=== PATIENT | male | born 1990 | race Caucasian/White ===

== ENCOUNTER 2020-11-13 10:00 | Outpatient (REF) | payer MEDICAID, SELFPAY ==
--- NOTE | 2020-11-13 10:13 | XR_ITS ---
EXAMINATION: XR ANKLE, RIGHT CLINICAL INFORMATION: Pain COMPARISON: None TECHNIQUE: AP, lateral, and mortise views of the right ankle. FINDINGS: Bone alignment is normal. No fracture or dislocation is seen. The ankle mortise is normal. There is question of a small osteophyte of the navicular bone at the talonavicular joint. Soft tissues are unremarkable. XR/XR ankle RT min 3V IMPRESSION: Normal right ankle. Question small navicular bone osteophyte.
== END 2020-11-13 10:01 | disposition home or self-care (01) ==
LOC: HO.XRAY 10:00
PROVIDERS: PCP Internal Medicine; Visit Provider Internal Medicine
DX: M25.571 Pain in right ankle and joints of right foot (principal)
CPT/HCPCS: 73610

== ENCOUNTER 2020-12-02 11:09 | Outpatient (REF) | payer MEDICAID, SELFPAY ==
--- NOTE | 2020-12-02 15:59 | MHC.AU.P13 ---
Adult Audiological Evaluation Date of Visit: 12/02/20 Reason for Appointment: Patient reports long-standing hearing difficulty. 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 He finds himself asking for repetition frequently. His family has noticed hearing difficulty at home and on the phone as well. Patient reports that his ears often feel blocked. 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 Right Ear: Normal Middle Ear System (Type A) Left Ear: Normal Middle Ear System (Type A) Otoacoustic Emissions Frequency Range Used: 1.6-8 kHz Right Ear Results: Present Emissions Analysis: Present emissions suggest normal cochlear function Rules out peripheral hearing loss greater than a mild degree Left Ear Results: Present Emissions Analysis: Present emissions suggest normal cochlear function Rules out peripheral hearing loss greater than a mild degree Hearing Evaluation: Transducer(s) Used: Insert Earphones Method: Conventional Audiometry Stimuli Used: Pure Tones Right Ear: Description of Hearing: Normal peripheral hearing sensitivity Left Ear: Description of Hearing: Normal peripheral hearing sensitivity Speech Recognition Threshold (SRT): Method Used: Recorded Lists Right Ear: 25 dBHL Left Ear: 25 dBHL Word Discrimination: Method: Recorded Lists Word Lists Used: Lista Bisil?bica (Gabonese) Right Ear: In Quiet: 100% at 65 dBHL In Noise (+10 SNR): 68% at 65 dBHL Left Ear: In Quiet: 100% at 65 dBHL In Noise (+10 SNR): 64% at 65 dBHL Interpretation of Results: When in quiet, the patient's tonal hearing is normal and his word discrimination scores are excellent; however, when background noise is added, his word discrimination scores drop significantly. This suggests the patient has great difficulty understanding speech when other noise is present. This finding helps explain why the patient is reporting such difficulty hearing in his daily life. Recommendations: Audiological re-evaluation in one year. Before talking to the patient, gain his full attention. In an ideal listening environment, conversations would be [id number] and from a close distance (however, given the current COVID-19 pandemic, it is important to continue following guidelines such as wearing masks and maintaining 6 foot distances during conversations, until it is safe to do otherwise). Reduce background noise whenever possible. Use written materials as needed, such as sending important information or directions by e-mail or text. Products called hearables may be beneficial, as they can offer a small amount of amplifcation, while reducing background noise. An example is the Jac[employer]eline Hearphones. Diagnosis: Primary Diagnosis: H93.293 Abnormal Auditory Perception Services Performed:Comprehensive Audiological Evaluation (CPT 69224), Limited Otoacoustic Emissions (CPT 65448), Tympanometry (CPT 66611) Signature: Provider: Cassie Wilkes, CCC-A
== END 2020-12-02 11:10 | disposition home or self-care (01) ==
LOC: HO.SH 11:09
PROVIDERS: Visit Provider Internal Medicine
DX: H93.293 Other abnormal auditory perceptions, bilateral (principal)
CPT/HCPCS: 92557; 92567; 92587

== ENCOUNTER 2020-12-05 09:45 | Inpatient (IN) | payer MEDICAID, SELFPAY ==
[2020-12-05] VITALS (9 sets, daily range): BP systolic 100–143; BP diastolic 53–78; PULSE 66–100; RESP 11–18; TEMP 36–36.8; O2SAT 93–100; BMI 33.6
--- NOTE | 2020-12-05 11:14 | ED_ITS ---
HPI - Abdominal Pain General Chief Complaint: Abdominal Pain Stated Complaint: abd pain Time Seen by Provider: 12/05/20 11:14 Source: patient Mode of arrival: ambulatory Limitations: no limitations History of Present Illness HPI narrative: This is a otherwise healthy 30-year-old male who denies any significant past medical history or surgical history he presents with complaint of 6 days of ongoing right lower quadrant abdominal pain described as sharp pains to shooting that is somewhat persistent no aggravating or alleviating factors there is associated nausea and today has had 2 episodes of diarrhea. He otherwise denies any recent travel or sick contacts. No fever. No prior history of similar pain. No symptoms. No back pain. MD elicited complaint: abdominal pain Onset (ago): day(s) Pain Consistency: constant Location: RLQ Severity: moderate Quality: stabbing and aching Migration to: periumbilical Exacerbating factors: nothing Relieving factors: nothing Associated symptoms: denies other symptoms Related Data Allergies Allergy/AdvReac Type Severity Reaction Status Date / Time seafood Allergy Anaphylaxis Verified 12/05/20 11:03 Review of Systems Review of Systems Constitutional: No Weight loss, No Fever, No Chills, No Night Sweats, No Fatigue, No Malaise ENT/Mouth: No Hearing loss, No Ear Pain, No Nasal Congestion, No Sinus Pain, No Hoarseness, No sore throat, No Rhinorrhea, No Swallowing Difficulty Eyes: No Eye Pain, No Swelling, No Redness, No Foreign Body, No Discharge, No Vision Changes Cardiovascular: No Chest Pain, No SOB, No Dyspnea on Exertion, No Orthopnea, No Edema, No Palpitations Respiratory: No Cough, No Sputum, No Wheezing, No Smoke Exposure, No Dyspnea Gastrointestinal: As noted in HPI, No Hematochezia, No Melena Genitourinary: No Dysuria, No Urinary Frequency, No Hematuria, No Urinary Incontinence, No Urgency, No Flank Pain Musculoskeletal: No joint pain, No Myalgias, No Joint Swelling Skin: No Skin Lesions, No rash Neuro: No Weakness, No Numbness, No Paresthesias, No Loss of Consciousness, No Dizziness, No Headache Psych: Negative Heme/Lymph: No Bruising, No Bleeding,No Lymphadenopathy Endocrine: No Polyuria, No Polydipsia, No Temperature Intolerance Yes all other systems are reviewed and are negative Physical Exam Vital Signs: Vital Signs: Last Vital Signs Temp 98.0 F 12/05/20 13:31 Pulse 100 12/05/20 13:31 Resp 18 12/05/20 13:31 BP 139/64 12/05/20 13:31 Pulse Ox 99 12/05/20 13:31 Body Mass Index 33.6 Reviewed Const: General: cooperative and healthy appearing; No acute distress or into xicated appearing Nutritional Appearance: average body habitus Orientation/consciousness: patient oriented x3 HENMT: Head: Yes normal to inspection Ears: hearing grossly normal bilaterally Eyes: General: appearance normal, both eyes and all related structures Visual Boyd: normal visual boyd by confrontation Neck: Neck: Yes normal visual inspection, No positive Brudzinski's sign, No positive Kernig's sign and No tender Thyroid: Thyroid normal Chest: Chest palpation & inspection: normal inspection of the chest Resp: Effort & Inspection: normal respiratory effort Cardio: Jugular venous distension: no JVD Rhythm: regular rhythm Heart sounds: S1 normal heart sound present and S2 normal heart sound present GI: Inspection: Yes normal to inspection Palpation (GI): Tenderness to palpation present (GI) in the RLQ, no guarding and not rigid Percussion: Yes normal to percussion Auscultation: normal bowel sounds : General: Yes no CVA tenderness Back/Spine/Pelvis: Back: no CVA tenderness Skin: General skin exam: no rashes or lesions noted Neuro: General: patient oriented x3 Extrem: General: Yes normal to inspection Course Course Course Narrative: AP exam concerning for acute appendicitis accordingly labs and abdominal CT with IV contrast ordered. States he would like to hold off on any pain medicine at this time but would like something for nausea. Nontoxic a ppearing. He medically stable at this time. Reevaluation(s) Reevaluation #1: Labs showed leukocytosis 1344 did request dose of pain medicine right now which was given. Otherwise slight hyperkalemia at 5.2. CT of the abdomen pelvis is pending. Reevaluation #2: CT of the abdomen and pelvis show: Distended inflamed appendix with a small phlebolith at the base and radiopaque metallic foreign body with artifact at the tip. The foreign body could be from oral ingestion or metallic maranda from partial appendectomy. There is periappendix fat stranding consistent with acute appendicitis. Correlate with clinical history Consultations Consultation #1: Case discussed with general surgery Dr. Ervin who came and evaluated patient at bedside will take to the OR. MDM - Abdominal Pain Differential Diagnosis Differential diagnosis: Likely abdominal pain, acute appendicitis, calculus of kidney and renal colic; Unlikely aortic dissection, bowel perforation, constipat ion, diverticulitis, gastroenteritis, pancreatitis, peptic ulcer disease and small bowel obstruction Medical Records Attestation: I reviewed the patient's medical records. Lab Data Attestation: I reviewed the patient's lab results. Result diagrams: 12/05/20 11:21 12/05/20 11:21 Labs: Lab Results 12/05/20 12/05/20 12/05/20 Range/Units 11:21 11:21 11:21 WBC 13.4 H (4.8-10.8) X10*3/uL RBC 5.27 (4.60-5.80) X10*6/uL Hgb 15.6 (14.0-18.0) g/dl Hct 47.2 (42-52) % MCV 89.6 (80-98) fL MCH 29.6 (27.0-33.0) pg MCHC 33.1 (31.0-36.0) g/dl RDW 11.8 (11.0-16.0) % Plt Count 245 (160-400) X10*3/uL MPV 10.7 (9.4-12.4) fL Immature Gran % (Auto) 0.3 (0.0-0.4) % Neut % (Auto) 83.9 H (45-73) % Lymph % (Auto) 9.3 L (20-40) % [place] % (Auto) 5.9 (2-11) % Eos % (Auto) 0.4 (0-4) % Baso % (Auto) 0.2 (0-2) % Lymph # (Auto) 1.2 (1.2-4.9) X10*3/uL [place] # (Auto) 0.8 (0.1-1.2) X10*3/uL Eos # (Auto) 0.1 (0.0-0.4) X10*3/uL Baso # (Auto) 0.0 (0.0-0.2) X10*3/uL Abs Immat Gran (auto) 0.04 H (0.00-0.03) X10*3/uL Absolute Neuts (auto) 11.3 H (2.0-8.3) X10*3/uL Absolute Nucleated RBC 0.000 (0.0-0.012) X10*3/uL Nucleated RBC % (auto) 0.0 (0.0-0.2) /100WBC Sodium 138 (135-145) mmol/L Potassium 5.2 H (3.3-5.1) mmol/L Chloride 103 (96-108) mmol/L Carbon Dioxide 24 (22-29) mmol/L Anion Gap 16 (12-20) BUN 16 (9-16) mg/dL Creatinine 0.91 (0.5-1.4) mg/dL Estim Creat Clear Calc 117.2 Estimated GFR > 60 Random Glucose 105 (60-115) mg/dL Calcium 8.7 (8.4-10.2) mg/dL Total Bilirubin 0.5 (0.0-1.0) mg/dL AST 27 (5-37) U/L ALT 24 (0-40) U/L Alkaline Phosphatase 78 (39-117) U/L Total Protein 7.8 (6.5-8.0) g/dL Albumin 4.4 (3.5-5.0) g/dL Urine Color Urine Appearance Urine pH (5.0-8.0) Ur Specific [place] (1.005-1.025) Urine Protein (NEG-TRACE) MG/DL Urine Glucose (UA) (NEG) MG/DL Urine Ketones (NEG) MG/DL Urine Blood (NEG) Urine Nitrite (NEG) Ur Leukocyte Esterase (NEG) Urine RBC (0) /HPF Urine WBC (0-4) /HPF Ur Squamous Epith Cells /LPF Urine Bacteria /LPF COVID-19 ([facility]) Negative (Negative) COVID-19 Clin Com See Note 12/05/20 Range/Units 11:35 WBC (4.8-10.8) X10*3/uL RBC (4.60-5.80) X10*6/uL Hgb (14.0-18.0) g/dl Hct (42-52) % MCV (80-98) fL MCH (27.0-33.0) pg MCHC (31.0-36.0) g/dl RDW (11.0-16.0) % Plt Count (160-400) X10*3/uL MPV (9.4-12.4) fL Immature Gran % (Auto) (0.0-0.4) % Neut % (Auto) (45-73) % Lymph % (Auto) (20-40) % [place] % (Auto) (2-11) % Eos % (Auto) (0-4) % Baso % (Auto) (0-2) % Lymph # (Auto) (1.2-4.9) X10*3/uL [place] # (Auto) (0.1-1.2) X10*3/uL Eos # (Auto) (0.0-0.4) X10*3/uL Baso # (Auto) (0.0-0.2) X10*3/uL Abs Immat Gran (auto) (0.00-0.03) X10*3/uL Absolute Neuts (auto) (2.0-8.3) X10*3/uL Absolute Nucleated RBC (0.0-0.012) X10*3/uL Nucleated RBC % (auto) (0.0-0.2) /100WBC Sodium (135-145) mmol/L Potassium (3.3-5.1) mmol/L Chloride (96-108) mmol/L Carbon Dioxide (22-29) mmol/L Anion Gap (12-20) BUN (9-16) mg/dL Creatinine (0.5-1.4) mg/dL Estim Creat Clear Calc Estimated GFR Random Glucose (60-115) mg/dL Calcium (8.4-10.2) mg/dL Total Bilirubin (0.0-1.0) mg/dL AST (5-37) U/L ALT (0-40) U/L Alkaline Phosphatase (39-117) U/L Total Protein (6.5-8.0) g/dL Albumin (3.5-5.0) g/dL Urine Color YELLOW Urine Appearance CLEAR Urine pH 6.0 (5.0-8.0) Ur Specific [place] >= 1.030 H (1.005-1.025) Urine Protein NEG (NEG-TRACE) MG/DL Urine Glucose (UA) NEG (NEG) MG/DL Urine Ketones NEG (NEG) MG/DL Urine Blood NEG (NEG) Urine Nitrite NEG (NEG) Ur Leukocyte Esterase NEG (NEG) Urine RBC 0 (0) /HPF Urine WBC 0-2 (0-4) /HPF Ur Squamous Epith Cells NONE /LPF Urine Bacteria NONE /LPF COVID-19 ([facility]) (Negative) COVID-19 Clin Com Discharge Plan Discharge Clinical Impression: Acute appendicitis Patient Disposition: Admitted As Inpatient [facility] Past Medical History Medical History (Updated 12/05/20 @ 16:21 by Ramin Ramsay NP) Acute appendicitis Asthma Foreign body in intestine and colon Social History Social History Alcohol intake: current Alcohol intake frequency: a few times a month Smoking Status: Never smoker Use of substances other than those prescribed or required for medical reasons: No Advance Directives: No Advance Directives Information Provided: Yes
--- NOTE | 2020-12-05 11:14 | CT_ITS ---
EXAMINATION: CT ABDOMEN AND PELVIS WITH CONTRAST CLINICAL INFORMATION: Right lower quadrant abdominal pain. COMPARISON: None TECHNIQUE: Multidetector volumetric images were obtained from the superior aspect of the liver through the pubic symphysis following administration 85 mL of Omnipaque 350 intravenous contrast. Sagittal and coronal reformatted images were obtained on the technologist's workstation. Oral contrast: No This CT examination was performed using dose optimization techniques as appropriate, variously including the following: *Automated exposure control *Adjustment of mA and/or kV according to patient size (this includes techniques or standardized protocols for targeted exams where dose is matched to indication/reason for exam; i.e. extremities or head) *Use of iterative reconstruction technique DLP: 650 mGy-cm FINDINGS: LUNG BASES: No acute process seen in the lung bases. There is a 2 mm nodule left lower lobe, axial image 9/3. The heart size is normal. Mild mural thickening of GE junction likely from reflux esophagitis or small hiatal hernia. LIVER, GALLBLADDER, AND BILIARY TREE: The liver is normal in size, shape, and attenuation. No focal hepatic lesion or biliary ductal dilatation is present. The gallbladder is unremarkable with no evidence of radiopaque gallstones, gallbladder wall thickening, or obvious pericholecystic inflammatory changes. PANCREAS: Unremarkable. SPLEEN: Unremarkable. ADRENAL GLANDS: Unremarkable. KIDNEYS AND URETERS: The kidneys are normal in size, shape, and attenuation. No hydronephrosis, hydroureter, or calculi seen. No perinephric stranding. BLADDER: Unremarkable. GASTROINTESTINAL TRACT: There is scattered stool, gas throughout the colon without any distention. There is a small appendicolith in what appears to the base of appendix with mild distention of appendix measuring 1.1 cm. There are surgical maranda and artifact at the tip of the appendix. Question previous appendectomy maranda or radiopaque foreign body from ingestion. There is mild periappendix fat stranding. The IC junction is normal. No free air seen. ABDOMINAL WALL: No significant hernia is appreciated. LYMPH NODES: Normal. VASCULAR: Unremarkable. PELVIC VISCERA: Unremarkable. OSSEOUS STRUCTURES: A few endplate Schmorl's nodes upper lumbar, lower dorsal spine. No compression fracture seen. Limbus L5 vertebra. CT/CT abdomen pelvis w con IMPRESSION: Distended inflamed appendix with a small phlebolith at the base and radiopaque metallic foreign body with artifact at the tip. The foreign body could be from oral ingestion or metallic maranda from partial appendectomy. There is periappendix fat stranding consistent with acute appendicitis. Correlate with clinical history Results were discussed with Ramin Ramsay in ED at 2:50 PM. Initial call to ED was done around 11:15 AM but refer was not available on the phone.
[2020-12-05 11:27] LABS: MANUAL DIFF FLAG NO
[2020-12-05 11:29] LABS: Basophils Percent Auto 0.2 % (0-2); Eosinophils Absolute Auto 0.1 X10*3/uL (0.0-0.4); Eosinophils Percent Auto 0.4 % (0-4); Hematocrit 47.2 % (42-52); Hemoglobin 15.6 g/dl (14.0-18.0); Imm Gran Abs Auto 0.04 X10*3/uL (0.00-0.03); Imm Gran Pct Auto 0.3 % (0.0-0.4); Lymphocytes Absolute Auto 1.2 X10*3/uL (1.2-4.9); Lymphocytes Percent Auto 9.3 % (20-40); Mean Corpuscular HGB Conc 33.1 g/dl (31.0-36.0); Mean Corpuscular Hemoglobin 29.6 pg (27.0-33.0); Mean Corpuscular Volume 89.6 fL (80-98); Mean Platelet Volume 10.7 fL (9.4-12.4); Monocytes Absolute Auto 0.8 X10*3/uL (0.1-1.2); Monocytes Percent Auto 5.9 % (2-11); Neutrophils Absolute Auto 11.3 X10*3/uL (2.0-8.3); Neutrophils Percent Auto 83.9 % (45-73); Platelet Count 245 X10*3/uL (160-400); Red Blood Count 5.27 X10*6/uL (4.60-5.80); Red Cell Distribution Width 11.8 % (11.0-16.0); White Blood Count 13.4 X10*3/uL (4.8-10.8)
[2020-12-05] MEDS: 0.9 % Sodium Chloride 1,000 ML 999 ML IV (11:33)
[2020-12-05 11:48] LABS: IDNOW Serial# 9DD0AD1C
[2020-12-05 11:49] LABS: COVID-19 Test Negative (Negative)
[2020-12-05 11:50] LABS: Glucose Urine UA NEG (NEG); Leukocyte Esterase Urine NEG (NEG); Nitrite Urine NEG (NEG); Specific Gravity - Urine >= 1.030 (1.005-1.025); Urine Blood NEG (NEG); Urine Ketones NEG (NEG); Urine Protein NEG (NEG-TRACE)
[2020-12-05 11:52] LABS: Alanine Aminotransferase 24 U/L (0-40); Albumin Level 4.4 g/dL (3.5-5.0); Alkaline Phosphatase 78 U/L (39-117); Anion Gap 16 (12-20); Aspartate Amino Transferase 27 U/L (5-37); Bilirubin Total 0.5 mg/dL (0.0-1.0); Blood Urea Nitrogen 16 mg/dL (9-16); Calcium 8.7 mg/dL (8.4-10.2); Carbon Dioxide 24 mmol/L (22-29); Chloride 103 mmol/L (96-108); Creatinine Clr Calc Pharmacy 117.2; Estimated Glomerular Filt Rate > 60; Glucose Random 105 mg/dL (60-115); Potassium 5.2 mmol/L (3.3-5.1); Sodium 138 mmol/L (135-145); Total Protein 7.8 g/dL (6.5-8.0)
--- NOTE | 2020-12-05 11:55 | PC.NURSE ---
blood and urine obtained and sent to lab. Pt awaiting CT at this time.
[2020-12-05 12:09] LABS: Appearance Urine CLEAR; Color Urine YELLOW
[2020-12-05 12:19] LABS: RBC Urine 0 /HPF (0); WBC Urine 0-2 /HPF (0-4)
[2020-12-05] MEDS: Morphine Sulfate 4 MG/ML CARTRIDGE IVPUSH (13:28)
--- NOTE | 2020-12-05 13:31 | PC.NURSE ---
Awaiting results of imaging.PT medicated for pain.
[2020-12-05] MEDS: cefTRIAXone sodium 1 GM in 0.9 % Sodium Chloride 50 ML IV (15:12)
[2020-12-05] MEDS: metroNIDAZOLE/NS 500 MG/100 ML PIGGYBACK 100 MG IV (15:42)
--- NOTE | 2020-12-05 16:01 | P.HPGS_ITS ---
History of Present Illness History of Present Illness Date of Service: 12/05/20 Chief complaint: abd pain Narrative: Gregory Mccloud is a 30 year old male presenting with complaints of abdominal pain in the right lower quadrant. The pain began approximately 2 weeks ago and was described as a mild intermittent pinching in the right lower quadrant. On Monday12/04/2020 the pain became more intense in the right lower quadrant and increased in severity throughout the night. He subsequently presented to the emergency department this morning and was noted to be tender in the right lower quadrant. WBC was also elevated. CT of the abdomen and pelvis revealed metal fragment associated with the appendix with surrounding appendicitis. The patient denies a previous history of abdominal injury or abdominal surgery. He is unaware of any metallic ingestion. Patient is admitted for treatment of acute appendicitis and removal of the foreign body. Review of Systems Constitutional: Constitutional: Denies chills, Denies fever(s), Denies headache(s) and Denies poor appetite ENT: Denies dizziness and Denies headache(s) Cardiovascular: Cardiovascular: Denies chest pain, Denies rapid heart rate, Denies palpitations and Denies slow heart rate Respiratory: Respiratory: Denies chest congestion, Denies cough, Denies pain on inspiration and Denies wheezing Gastrointestinal: Gastrointestinal: Reports abdominal pain, Denies bloating, Denies change in stool character, Denies constipation, Denies diarrhea, Reports nausea, Denies vomiting and Denies hematemesis Musculoskeletal: Musculoskeletal: Denies back pain, Denies arthralgias, Denies joint swelling and Denies numbness Integumentary/Breasts: Skin/Breast: Denies change in pigmentation, Denies erythema and Denies rash Neurologic: Denies confusion, Denies dizziness, Denies headache(s) and Denies numbness Psychiatric: Psychiatric: Denies anxiety, Denies confusion and Denies depression Endocrine: Endocrine: Denies palpitations Hematologic/Lymphatic: Hematologic/Lymphatic: Denies easy bleeding, Denies easy bruising and Denies lymphadenopathy Allergic/Immunologic: Allergic/Immunologic: Denies wheezing PMFSH Past Medical History Medical History (Updated 12/05/20 @ 16:07 by Eddy Ervin MD) Acute appendicitis Asthma Foreign body in intestine and colon Social History Social History Alcohol intake: current Alcohol intake frequency: a few times a month Smoking Status: Never smoker Use of substances other than those prescribed or required for medical reasons: No Advance Directives: No Advance Directives Information Provided: Yes Meds Allergies Allergy/AdvReac Type Severity Reaction Status Date / Time seafood Allergy Anaphylaxis Verified 12/05/20 11:03 Physical Exam Vital Signs: Vital Signs: Last Vital Signs Temp 98.0 F 12/05/20 13:31 Pulse 100 12/05/20 13:31 Resp 18 12/05/20 13:31 BP 139/64 12/05/20 13:31 Pulse Ox 99 12/05/20 13:31 Body Mass Index 33.6 Const: General: cooperative, comfortable and well developed; No confusion Nutritional Appearance: well nourished Orientation/consciousness: patient oriented x3 and No confusion Eyes: Sclerae: sclerae normal EOM: EOMs intact bilaterally Neck: Neck: Yes normal visual inspection Resp: Effort & Inspection: normal respiratory effort, no cough and no respiratory distress Cardio: Jugular venous distension: no JVD Rate: regular rate Rhythm: regular rhythm GI: Inspection: Yes normal to inspection Palpation (GI): Soft to palpation, Tenderness to palpation present (GI) in the RLQ, at McBurney's point and Rovsin g's sign positive, no guarding and not rigid Percussion: Yes normal to percussion Auscultation: normal bowel sounds Abdomen image: 1. Site of tenderness Skin: General skin exam: dry skin Rashes: no rashes Neuro: General: patient oriented x3, no focal motor deficits and No confusion Extrem: General: Yes full ROM and Yes no clubbing, cyanosis or edema Results Results Labs: Short CBC 12/05/20 Range/Units 11:21 WBC 13.4 H (4.8-10.8) X10*3/uL Hgb 15.6 (14.0-18.0) g/dl Hct 47.2 (42-52) % Plt Count 245 (160-400) X10*3/uL BMP 12/05/20 11:21 Sodium 138 Potassium 5.2 H Chloride 103 Carbon Dioxide 24 BUN 16 Creatinine 0.91 Calcium 8.7 Liver Function 12/05/20 Range/Units 11:21 Total Bilirubin 0.5 (0.0-1.0) mg/dL AST 27 (5-37) U/L ALT 24 (0-40) U/L Alkaline Phosphatase 78 (39-117) U/L Albumin 4.4 (3.5-5.0) g/dL Urine 12/05/20 Range/Units 11:35 Urine Color YELLOW Urine Appearance CLEAR Urine pH 6.0 (5.0-8.0) Ur Specific [place] >= 1.030 H (1.005-1.025) Urine Protein NEG (NEG-TRACE) MG/DL Urine Glucose (UA) NEG (NEG) MG/DL Assessment and Plan (1) Acute appendicitis: Status: Acute Patient presents with complaints of abdominal pain in the right lower quadrant which began approximately 2 weeks ago but became more severe over the past 24 hours. [place] [address] and is tender in the right lower quadrant over McBurney's point suggestive of acute appendicitis. CT of the abdomen and pelvis confirms appendicitis as well as metallic fragment possibly within the appendix. This fragment is of unknown source. We discussed the possibility of non operative management with IV antibiotics although this is unlikely to be successful with the foreign body being present. I therefore recommended a laparoscopic or possible open appendectomy and after discussion of the procedure, risks, and alternatives, he gives his consent for the laparoscopic or possible open appendectomy. He will be added onto the operative schedule for today.
--- NOTE | 2020-12-05 16:09 | MHC.SHP ---
Pre-Procedural Eval Section A The patient is an INPATIENT: Yes Changes since office visit: Yes Patient answered all questions; No Cold of Flu in the past 2 weeks, No New Medical Problems and No Changes in Medication The History & Physical has been completed within 30 days and I have reviewed it.: Yes Section B Chief Complaint: abd pain Allergies: Allergies Allergy/AdvReac Type Severity Reaction Status Date / Time seafood Allergy Anaphylaxis Verified 12/05/20 11:03 Plan Diagnosis/Plan: Unchanged I have reviewed the history and physical and performed a pertinent physical examination on my patient. No changes have occurred unless specified.
--- NOTE | 2020-12-05 16:47 | P.CONAN_ITS ---
[facility] Past Medical History Medical History (Updated 12/05/20 @ 16:21 by Ramin Ramsay NP) Acute appendicitis Asthma Foreign body in intestine and colon Social History Social History Alcohol intake: current Alcohol intake frequency: a few times a month Smoking Status: Never smoker Use of substances other than those prescribed or required for medical reasons: No Advance Directives: No Advance Directives Information Provided: Yes Meds Allergies Allergy/AdvReac Type Severity Reaction Status Date / Time seafood Allergy Anaphylaxis Verified 12/05/20 11:03 Exam Exam Date and Time: December 05, 2020 1647 Height,Weight and Vital Signs: Height 5 ft 3 in Weight 86.183 kg Last Vital Signs Temp 98.0 F 12/05/20 13:31 Pulse 100 12/05/20 13:31 Resp 18 12/05/20 13:31 BP 139/64 12/05/20 13:31 Pulse Ox 99 12/05/20 13:31 Pertinent Lab Results Pertinent Lab Results: Laboratory Tests 12/05/20 12/05/20 12/05/20 11:21 11:21 11:21 WBC 13.4 H RBC 5.27 Hgb 15.6 Hct 47.2 MCV 89.6 MCH 29.6 MCHC 33.1 RDW 11.8 Plt Count 245 MPV 10.7 Immature Gran % (Auto) 0.3 Neut % (Auto) 83.9 H Lymph % (Auto) 9.3 L [place] % (Auto) 5.9 Eos % (Auto) 0.4 Baso % (Auto) 0.2 Lymph # (Auto) 1.2 [place] # (Auto) 0.8 Eos # (Auto) 0.1 Baso # (Auto) 0.0 Abs Immat Gran (auto) 0.04 H Absolute Neuts (auto) 11.3 H Absolute Nucleated RBC 0.000 Nucleated RBC % (auto) 0.0 Sodium 138 Potassium 5.2 H Chloride 103 Carbon Dioxide 24 Anion Gap 16 BUN 16 Creatinine 0.91 Estim Creat Clear Calc 117.2 Estimated GFR > 60 Random Glucose 105 Calcium 8.7 Total Bilirubin 0.5 AST 27 ALT 24 Alkaline Phosphatase 78 Total Protein 7.8 Albumin 4.4 Urine Color Urine Appearance Urine pH Ur Specific [place] Urine Protein Urine Glucose (UA) Urine Ketones Urine Blood Urine Nitrite Ur Leukocyte Esterase Urine RBC Urine WBC Ur Squamous Epith Cells Urine Bacteria COVID-19 (AMADOU) Negative COVID-19 Clin Com See Note 12/05/20 11:35 WBC RBC Hgb Hct MCV MCH MCHC RDW Plt Count MPV Immature Gran % (Auto) Neut % (Auto) Lymph % (Auto) [place] % (Auto) Eos % (Auto) Baso % (Auto) Lymph # (Auto) [place] # (Auto) Eos # (Auto) Baso # (Auto) Abs Immat Gran (auto) Absolute Neuts (auto) Absolute Nucleated RBC Nucleated RBC % (auto) Sodium Potassium Chloride Carbon Dioxide Anion Gap BUN Creatinine Estim Creat Clear Calc Estimated GFR Random Glucose Calcium Total Bilirubin AST ALT Alkaline Phosphatase Total Protein Albumin Urine Color YELLOW Urine Appearance CLEAR Urine pH 6.0 Ur Specific [place] >= 1.030 H Urine Protein NEG Urine Glucose (UA) NEG Urine Ketones NEG Urine Blood NEG Urine Nitrite NEG Ur Leukocyte Esterase NEG Urine RBC 0 Urine WBC 0-2 Ur Squamous Epith Cells NONE Urine Bacteria NONE COVID-19 (AMADOU) COVID-19 Clin Com Airway Mallampati Class: I TM Dist: >3cm Neck ROM: Full Loose/Missing/Broken Teeth: No Heart: RRR Lungs: CTA Assessment and Plan Assessment Anesthesia Assessment: Anesthesia Plan Discussed and Chart Reviewed Final Anesthetic Review NPO: Yes ASA Class: II and Emergency Final Preanesthetic Review: No Changes in Pt Med Stat, Meds/Allgs Chart Reviewed, Consent Obtained/Reviewed and Anes Risks/Benef Reviewed Patient Risk: Intermediate Procedure Risk: Intermediate Anesthetic Plan Anesthetic Plan: GA Disposition: Standard PACU
--- NOTE | 2020-12-05 17:00 | PC.NURSE ---
Report given to Monik KAHN.
--- NOTE | 2020-12-05 18:29 | P.OP_ITS ---
Operative Note Operative Note Date of Service: 12/05/20 Narrative: Preoperative diagnosis: Acute appendicitis Postoperative diagnosis: Same Procedure: Laparoscopic appendectomy Surgeon: Eddy Ervin MD Anesthesia: General endotracheal Indications for procedure: 30-year-old male patient presenting with complaints of abdominal pain in the right lower quadrant which increased over the past 24 hours. Pain was located in this location for approximately 2 weeks intermittently until yesterday when the pain became suddenly worse. He presented to the emergency department was noted to have an elevated WBC. CT of the abdomen revealed appendicitis with a possible foreign body within the appendix. Operative findings: Patient was found to have acute appendicitis without perforation. There was thickening of the mesentery. Examination of the appendix after removal did not reveal immediately evident foreign body. Specimen: Appendix Complications: None Estimated blood loss: 2 mL Procedure details: Patient was brought to the OR placed in a supine position. After administering general anesthesia the patient's abdomen was prepped with ChloraPrep and draped in a sterile fashion. A surgical time-out was called and consent confirmed. The patient received preoperative antibiotics and Venodyne boots were in place. Local anesthesia consisting of 0.25% Sensorcaine with epinephrine was infiltrated in a periumbilical region. A 5 mm incision was made below the u mbilicus in a transverse fashion. Veress needle was then inserted while elevating abdominal cavity with towel clips. After positive drop test the abdomen was insufflated to a pressure of 15 mm of mercury. The Veress needle was removed and a 5 mm trocar inserted. The camera was then inserted in the abdomen explored. A 2nd 5 mm trocar was then placed in the lower midline followed by a 12 mm trocar in the left lower quadrant. The patient was then placed in Trendelenburg position rotated to the left. The abdomen was then explored and the appendix identified in the right lower quadrant. It was densely adherent to the terminal ileum and the abdominal sidewall. Gentle dissection was used to dissect the appendix free. The mesoappendix was then dissected and divided using LigaSure. Dissection was continued down to the base of the appendix and a Endo-VALENTE stapler used to divide the appendix at the base of the appendix. The appendix was then brought into the Endo-Catch bag and brought out through the left lower quadrant incision. A small amount of turbid fluid was evacuated using suction. No bleeding was identified. CO2 was then evacuated from the abdominal cavity and all trocars removed. Fascia was closed at the left lower quadrant incision using a [id number] 0 Polysorb suture. Skin was closed in all incisions using a subcuticular 4-0 Polysorb suture. Steri-Strips 2 x 2 gauze and Tegaderm were then applied. Patient tolerated the procedure well. Sponge, instrument, needle counts reported as correct. The patient was transferred to PACU in stable condition.
--- NOTE | 2020-12-05 18:36 | PM.OP ---
Brief Operative Note Date of Service: 12/05/20 Pre-op diagnosis: Acute appendicitis Post-op diagnosis: same Procedure: Laparoscopic appendectomy Implants: None Surgeon: Eddy Ervin MD Anesthesia: GETA Estimated blood loss (mL): 2 Pathology: other (Appendix) Condition: stable Disposition: PACU
[2020-12-05] MEDS: Lactated Ringers 1,000 ML 100 ML IVCONT (19:46)
[2020-12-05] MEDS: 0.9 % Sodium Chloride Flush 3 ML SYRINGE IVFLUSH (19:46)
[2020-12-05] MEDS: ondansetron HCL 4 MG/2 ML VIAL IVPUSH (20:40)
[2020-12-05] MEDS: Acetaminophen 325 MG TABLET 650 MG PO (23:25)
[2020-12-06 04:00] VITALS: BP 120/60; PULSE 80; RESP 16; TEMP 36.8; O2SAT 97
[2020-12-06] MEDS: Lactated Ringers 1,000 ML 100 ML IVCONT (05:27)
[2020-12-06 06:42] LABS: MANUAL DIFF FLAG NO
[2020-12-06 06:59] LABS: Basophils Percent Auto 0.1 % (0-2); Hematocrit 44.8 % (42-52); Hemoglobin 14.7 g/dl (14.0-18.0); Imm Gran Abs Auto 0.03 X10*3/uL (0.00-0.03); Imm Gran Pct Auto 0.3 % (0.0-0.4); Lymphocytes Absolute Auto 0.8 X10*3/uL (1.2-4.9); Lymphocytes Percent Auto 9.3 % (20-40); Mean Corpuscular HGB Conc 32.8 g/dl (31.0-36.0); Mean Corpuscular Hemoglobin 28.9 pg (27.0-33.0); Mean Corpuscular Volume 88.2 fL (80-98); Mean Platelet Volume 10.8 fL (9.4-12.4); Monocytes Absolute Auto 0.6 X10*3/uL (0.1-1.2); Monocytes Percent Auto 6.4 % (2-11); Neutrophils Absolute Auto 7.6 X10*3/uL (2.0-8.3); Neutrophils Percent Auto 83.9 % (45-73); Platelet Count 253 X10*3/uL (160-400); Red Blood Count 5.08 X10*6/uL (4.60-5.80); Red Cell Distribution Width 11.3 % (11.0-16.0)
[2020-12-06 08:00] VITALS: BP 116/52; PULSE 72; RESP 18; TEMP 36.6; O2SAT 99
--- NOTE | 2020-12-06 09:06 | P.DS_ITS ---
DS: Providers Provider Date of Service: 12/06/20 Date of admission: 12/05/20 16:10 Date of discharge: 12/06/20 Primary care physician: Nella Talavera MD Admitting clinician: Eddy Ervin DS: Diagnosis Discharge Diagnosis (1) Acute appendicitis: Status: Acute DS: Medications Discharge Medications Home Medications: Home Medications Medication Instructions Recorded Confirmed No Known Home Meds 12/06/20 12/06/20 Previous Rx's Medication Instructions Recorded oxycodone 5 mg PO Q6H PRN #10 tab 12/06/20 DS: Summary Hospital Course Hospital Course: Gregory Mccloud is a 30 year old male presenting with complaints of abdominal pain in the right lower quadrant. The pain began approximately 2 weeks ago and was described as a mild intermittent pinching in the right lower quadrant. On Monday12/04/2020 the pain became more intense in the right lower quadrant and increased in severity throughout the night. He subsequently presented to the emergency department on 12/05/2020 and was noted to be tender in the right lower quadrant. WBC was also elevated. CT of the abdomen and pelvis revealed metal fragment associated with the appendix with surrounding appendicitis. The patient denies a previous history of abdominal injury or abdominal surgery. He is unaware of any metallic ingestion. Patient is admitted for treatment of acute appendicitis and removal of the foreign body. Patient was taken to the operating room on the day of admission, 12/05/2020 for a laparoscopic appendectomy. Operative findings were consistent with acute appendicitis without perforation. No definite foreign body could be identified within the specimen or surrounding the appendix. A small amount of turbid fluid was identified but no evidence of an abscess. The patient tolerated the procedure well and was transferred to PACU in stable condition. Postoperatively the patient was started on clear liquid diet and advanced to a regular diet. He tolerated this well without nausea or vomiting. On postoperative day 1 patient reports being comfortable with no nausea, vomiting, fever, or chills. He reports only mild incisional pain in the left lower quadrant. He feels ready for discharge to home. Discharge instructions were to avoid lifting greater than 10 lb for the next 2 weeks and avoid driving for the next week. He may resume a regular diet. He will be given a prescription for oxycodone 5 mg q.6 hours p.r.n. for pain (10 tabs). He should follow up in my office in approximately 1 week for wound examination. He was encouraged to call the office for fever, chills, nausea, vomiting, or other concerns. Time Spent with Patient Time attestation: Total time spent providing and/or coordinating discharge services: Discharge coordination time: Less than 30 minutes Physical Exam Vital Signs: Vital Signs: Last Vital Signs Temp 97.9 F 12/06/20 08:00 Pulse 72 12/06/20 08:00 Resp 18 12/06/20 08:00 BP 116/52 L 12/06/20 08:00 Pulse Ox 99 12/06/20 08:00 Body Mass Index 33.6 Const: General: cooperative, healthy appearing, comfortable and no acute distress Resp: Effort & Inspection: normal respiratory effort Auscultation: clear to auscultation bilaterally GI: Inspection: Yes normal to inspection Palpation (GI): Soft to palpation, Tenderness to palpation present (GI) in the LLQ, no guarding, not rigid, no hernias and no masses Percussion: Yes normal to percussion Auscultation: normal bowel sounds Skin: General skin exam: dry skin and no erythema Rashes: no rashes Extrem: General: Yes no clubbing, cyanosis or edema DS: Data Data Completed and Pending Pending studies at discharge: Pending at discharge 12/05/20 18:12 Surgical [PTH] Routine Labs on day of discharge: Laboratory Tests 12/05/20 12/05/20 12/05/20 11:21 11:21 11:21 WBC 13.4 H RBC 5.27 Hgb 15.6 Hct 47.2 MCV 89.6 MCH 29.6 MCHC 33.1 RDW 11.8 Plt Count 245 MPV 10.7 Immature Gran % (Auto) 0.3 Neut % (Auto) 83.9 H Lymph % (Auto) 9.3 L [place] % (Auto) 5.9 Eos % (Auto) 0.4 Baso % (Auto) 0.2 Lymph # (Auto) 1.2 [place] # (Auto) 0.8 Eos # (Auto) 0.1 Baso # (Auto) 0.0 Abs Immat Gran (auto) 0.04 H Absolute Neuts (auto) 11.3 H Absolute Nucleated RBC 0.000 Nucleated RBC % (auto) 0.0 Sodium 138 Potassium 5.2 H Chloride 103 Carbon Dioxide 24 Anion Gap 16 BUN 16 Creatinine 0.91 Estim Creat Clear Calc 117.2 Estimated GFR > 60 Random Glucose 105 Calcium 8.7 Total Bilirubin 0.5 AST 27 ALT 24 Alkaline Phosphatase 78 Total Protein 7.8 Albumin 4.4 Urine Color Urine Appearance Urine pH Ur Specific [place] Urine Protein Urine Glucose (UA) Urine Ketones Urine Blood Urine Nitrite Ur Leukocyte Esterase Urine RBC Urine WBC Ur Squamous Epith Cells Urine Bacteria COVID-19 (AMADOU) Negative COVID-19 Clin Com See Note 12/05/20 12/06/20 11:35 06:19 WBC 9.0 RBC 5.08 Hgb 14.7 Hct 44.8 MCV 88.2 MCH 28.9 MCHC 32.8 RDW 11.3 Plt Count 253 MPV 10.8 Immature Gran % (Auto) 0.3 Neut % (Auto) 83.9 H Lymph % (Auto) 9.3 L [place] % (Auto) 6.4 Eos % (Auto) 0.0 Baso % (Auto) 0.1 Lymph # (Auto) 0.8 L [place] # (Auto) 0.6 Eos # (Auto) 0.0 Baso # (Auto) 0.0 Abs Immat Gran (auto) 0.03 Absolute Neuts (auto) 7.6 Absolute Nucleated RBC 0.000 Nucleated RBC % (auto) 0.0 Sodium Potassium Chloride Carbon Dioxide Anion Gap BUN Creatinine Estim Creat Clear Calc Estimated GFR Random Glucose Calcium Total Bilirubin AST ALT Alkaline Phosphatase Total Protein Albumin Urine Color YELLOW Urine Appearance CLEAR Urine pH 6.0 Ur Specific [place] >= 1.030 H Urine Protein NEG Urine Glucose (UA) NEG Urine Ketones NEG Urine Blood NEG Urine Nitrite NEG Ur Leukocyte Esterase NEG Urine RBC 0 Urine WBC 0-2 Ur Squamous Epith Cells NONE Urine Bacteria NONE COVID-19 (AMADOU) COVID-19 Clin Com Discharge Plan Discharge Patient Disposition: Home, Self-Care Referrals: Nella Torres MD [Primary Care Provider] - Discharge Medications: New oxycodone 5 mg tablet 5 mg PO Q6H PRN (Reason: pain) Qty: 10 RF: 0 No Action No Known Home Meds RF: 0 Discharge Orders: Discharge Order (Routine); Ordered 12/06/20 Ordered By: Eddy Ervin Diet: advance to usual diet Activity on Discharge: No heavy lifting Stand Alone Forms: Patient Portal Discharge page Activity Restrictions/Additional Instructions: No lifting > 10 pounds for 2 weeks No driving for one week Ice to the incision x 24 hours Remove dressing in 3 days Follow up in office in one week. Visit Report Forms: Patient Portal Discharge page Care Plan Goals: Return to normal activity and normal diet Health Concerns: Acute appendicitis Plan of Treatment: Patient is status post laparoscopic appendectomy
--- NOTE | 2020-12-06 16:13 | HO.POSTANES ---
Post Anesthesia Evaluation Post Anesthesia Evaluation Vital Signs: Vital Signs Temp Pulse Resp BP Pulse Ox 12/06/20 08:00 97.9 F 72 18 116/52 L 99 Anesthesia: General Endotracheal-GETA Mental Status: Awake Pain Control: Satisfactory Nausea/Vomiting: None Hydration: Adequate Anesthesia-Related Issues: No Anes. Related Issues
== END 2020-12-06 10:05 | disposition home or self-care (01) | DRG 234 ==
LOC: HO.ED 10:49 → HO.SSS 16:10 → HO.SSSA 16:13 → HO.S3 18:23
PROVIDERS: Nurse Practitioner Primary Care; Admitting Provider Surgery; Emergency Provider Emergency Medicine; PCP Internal Medicine; Visit Provider Surgery
PROC: 0DTJ4ZZ Resection of Appendix, Percutaneous Endoscopic Approach (ICD-10-PCS; CPT 44970; principal; 2020-12-05 17:00)
DX: K35.80 Unspecified acute appendicitis (principal); J45.909 Unspecified asthma, uncomplicated; Z20.822 Contact with and (suspected) exposure to COVID-19
CPT/HCPCS: 36415; 74177; 80053; 81001; 85025; 87635; 88304; 96361; 96365; 96367; 96375; 99285; J0696; J1100; J2250; J2270; J2405; J3010

== ENCOUNTER → 2020-12-11 09:18 | Outpatient (BNVA) | payer MEDICAID, SELFPAY | PROVIDERS: PCP Internal Medicine; Visit Provider Physician Assistant | DX: M25.571 Pain in right ankle and joints of right foot (principal); G89.29 Other chronic pain | CPT/HCPCS: 99202 ==

== ENCOUNTER → 2020-12-22 11:17 | Outpatient (BNVA) | payer MEDICAID, SELFPAY | PROVIDERS: PCP Internal Medicine; Visit Provider Surgery | DX: K35.80 Unspecified acute appendicitis (principal) | CPT/HCPCS: 99212 ==

== ENCOUNTER 2024-05-03 13:04 | Outpatient (REF) | payer MEDICAID, SELFPAY | END 2024-05-03 13:05 | disposition home or self-care (01) | LOC: HO.HHCLNP 13:04 | PROVIDERS: Visit Provider Internal Medicine | DX: R12 Heartburn (principal) | CPT/HCPCS: 87338 ==

== ENCOUNTER 2024-11-21 16:07 | Outpatient (REF) | payer MEDICAID, SELFPAY ==
[2024-11-22 14:26] LABS: H Pylori Breath Test Negative (Negative)
== END 2024-11-21 16:08 | disposition home or self-care (01) ==
LOC: HO.LNP 16:07
PROVIDERS: Visit Provider Internal Medicine
DX: A04.8 Other specified bacterial intestinal infections (principal)
CPT/HCPCS: 83013

== ENCOUNTER 2025-08-20 10:50 | Outpatient (REF) | payer OTHER, SELFPAY ==
--- OUTSIDE RECORDS SUMMARY | 2025-08-20 10:00 | XMS_ITS | Encounter Summary ---
Author Organization [employer] Address [address] [place] [address] Care Team Providers Care Towboat Pilot Name Role Phone Nella Torres MD Primary Care Provide r Reason for Visit * Reason Comments Cough Sore Throat Encounter Details Date Type Department Care Team ([facility] st Contact Info) Description 08/20/2025 10:00 AM EDT Office Visit [facility] [place] [address] [place] [address] Flu-like symptoms (Primary Dx); Cough in adult patient Social History Tobacco Use Types Packs/Day Years Used Date Smoking Tobacco: Never Passive Smoke Exposure: Never Smokeless Tobacco: Never Tobacco Cessation:Counseling Given: Not Answered Alcohol Use Standard Drinks/Week Comments Yes 0 (1 standard drink = 0.6 oz pur e alcohol) oca Depression Answer Date Recorded Patient Health Questionnaire-9 Score 1 04/30/2024 Patient Health Questionnaire-9 Score 1 04/30/2024 Last PHQ-9: Questionnaire Data Not on file 0 04/30/2024 Housing Stability Answer Date Recorded What is your housing situation today? I have bandar sampson 04/19/[address] you li ve. Do you have problems with any of the following? None of the above 04/19/2024 Food Insecurity Answer Date Recorded Within the past 12 months, y ou worried that your food would run out before you got money to buy more: Never True 04/19/2024 Within the past 12 months,th e food you bought just didn't last and you didn't have enough money to get more: Never True Transportation Answer Date Recorded In the past 12 months, has l ack of transportation kept you from medical appts, meetings, work or from getting things needed for daily living? No 04/19/2024 Utilities Answer Date Recorded In the past 12 months, has t he electric, gas, oil or water company threatened to shut off services in your home? No 04/19/2024 Depression Answer Date Recorded Patient Health Questionnaire-2 Score 1 04/30/2024 Sex and Gender Information Value Date Recorded Sex Assigned at Male 09/05/2022 10:37 AM EDT Legal Sex Male 10:37 AM EDT Gender Identity Male 09/05/2022 10:37 AM EDT Sexual Orientation Straight 09/05/2022 10 :37 AM EDT documented as of this encounter Last Filed Vital Signs Vital Sign Reading Time Taken Comments Blood Pressure 131/85 08/20/2025 9:35 AM EDT Pulse 71 08/20/2025 9:35 AM EDT Temperature 36.9 C (98.4 F) 08/20/2025 9:35 AM EDT Respiratory Rate 18 08/20/2025 9:35 AM EDT Oxygen Saturation 98% 08/20/2025 9:35 AM EDT Inhaled Oxygen Concentration - - Weight 88.9 kg (196 lb) 08/20/2025 9:35 AM EDT Height - - Body Mass Index 35.85 05/02/2025 2:28 PM EDT documented in this encounter Plan of Treatment Scheduled Orders Name Type Priority Associated Diagnoses Orde r Schedule Comprehensive Metabolic Panel Lab Routine Flu-like symptoms Expected: 08/20/2025 (Approximate), Expires: 08/20/2026 CBC auto differential Lab Routine Flu-like symptoms Expected: 08/20/2025 (Approximate), Expires: 08/20/2026 Hepatitis B surface antigen, EIA Lab Routine Flu-like symptoms Expected: 08/20/2025 (Approximate), Expires: 08/20/2026 Hepatitis C Antibody with Reflex to HCV, RNA, Quantitative, Real-Time PCR Lab Routine Flu-like symptoms Expected: 08/20/2025 (Approximate), Expires: 08/20/2026 HIV-1/2 Antigen and Antibodies, Fourth Generation, with Reflexes Lab Routine Flu-like symptoms Expected: 08/20/2025 (Approximate), Expires: 08/20/2026 Respiratory Viral Panel PCR Lab Routine Flu-like symptoms Ordered: 08/20/2025 documented as of this encounter Procedures Procedure Name Priority Date/Time Associated Diagnosis Comments POCT INFLUENZA B (ID NOW RAPID MOLECULAR) Routine 08/20/2025 9:39 AM EDT Cough in adult patient POCT INFLUENZA A (ID NOW RAPID MOLECULAR) Routine 08/20/2025 9:39 AM EDT Cough in adult patient POCT RAPID COVID ANTIGEN Routine 08/20/2025 9:39 AM EDT Cough in adult patient POCT RAPID STREP A Routine 08/20/2025 9: 39 AM EDT Cough in adult patient documented in this encounter Results * POCT rapid strep A manually resulted (08/20/2025 9:39 AM EDT) [facility] Rapid Strep A Screen Negative Negative, None Detected Swab 08/20/2025 9:39 AM EDT Nella Mccloud MD POINT OF CARE TRIPP T ENTER/EDIT ORDERABLES Final Result * POCT Rapid COVID Ag (08/20/2025 9:39 AM EDT) [facility] Rapid COVID Ag Negative Swab 08/20/2025 9:39 AM EDT Nella Mccloud MD POINT OF CARE TRIPP T ENTER/EDIT ORDERABLES Final Result * Influenza B (ID NOW Rapid Molecular) (08/20/2025 9:39 AM EDT) [facility] Influenza B Negative Negative, Indeterminate [facility] Swab 08/20/2025 9:39 AM EDT Nella Mccloud MD POINT OF CARE TRIPP T ENTER/EDIT ORDERABLES Final Result [facility] [address] [place] [address] [phone] * Influenza A (ID NOW Rapid Molecular) (08/20/2025 9:39 AM EDT) Influenza A Negative Negative, Indeterminate [facility] Swab 08/20/2025 9:39 AM EDT Nella Mccloud MD POINT OF CARE TRIPP T ENTER/EDIT ORDERABLES Final Result [facility] [address] [place] [address] [phone] documented in this encounter Visit Diagnoses Diagnosis Flu-like symptoms- Primary Cough in adult patient documented in this encounter Additional Health Concerns Assessment Noted Time PHQ-9 Depression Total Score: 1 04/30/20 24 1:06 PM EDT documented as of this encounter Care Teams Towboat Pilot Relationship Specialty Start Date End Date Nella Torres MD [address] [place] [id number] PCP - General Family Medicine 11/20/20 documented as of this encounter
[2025-08-20 13:13] LABS: MANUAL DIFF FLAG NO
--- OUTSIDE RECORDS SUMMARY | 2025-08-20 13:14 | XMS_ITS | Encounter Summary ---
Author Organization [employer] Address [address] [place] [address] Care Team Providers Care Surgical Forceps Fabricator Name Role Phone Nella Torres MD Primary Care Provide r Encounter Details Date Type Department Care Team ([facility] st Contact Info) Description 05/08/2024 Orders Only [facility] [address] [place], [place] [phone] Nella Torres MD [address] [place] [address] Helicobacter pylori infection (Primary Dx) Social History Tobacco Use Types Packs/Day Years Used Date Smoking Tobacco: Never Passive Smoke Exposure: Never Smokeless Tobacco: Never Alcohol Use Standard Drinks/Week Comments Yes 0 (1 standard drink = 0.6 oz pur e alcohol) oca Depression Answer Date Recorded Patient Health Questionnaire-9 Score 1 04/30/2024 Patient Health Questionnaire-9 Score 1 04/30/2024 Last PHQ-9: Questionnaire Data Not on file 0 04/30/2024 Housing Stability Answer Date Recorded What is your housing situation today? I have badnar sampson 04/19/[address] you [...] AM EDT documented as of this encounter Plan of Treatment Not on file documented as of this encounter Visit Diagnoses Diagnosis Helicobacter pylori infection- Primary Helicobacter pylori (H. pylori) documented in this encounter Additional Health Concerns Assessment Noted Time PHQ-9 Depression Total Score: 1 04/30/20 24 1:06 PM EDT documented as of this encounter Care Teams Surgical Forceps Fabricator Relationship Specialty Start Date End Date Nella Torres MD [address] [place] [address] PCP - General Family Medicine 11/20/20 documented as of this encounter
--- OUTSIDE RECORDS SUMMARY | 2025-08-20 13:14 | XMS_ITS | Encounter Summary ---
Author Organization [employer] Address [address] [place] [address] Care Team Providers Care Engineer Technical Staff Name Role Phone Nella Torres MD Primary Care Provide r Encounter Details Date Type Department Care Team (Late st Contact Info) Description 10/05/2022 Abstract [facility] [address] [place] [address] Dental, Provider, DDS Social History Tobacco Use Types Packs/Day Years Used Date Smoking Tobacco: Never Assessed Sex and Gender Information Value Date Recorded Sex Assigned at Male 09/05/2022 10:37 AM EDT Legal Sex Male 10:37 AM EDT Gender Identity Male 09/05/2022 10:37 AM EDT Sexual Orientation Straight 09/05/2022 10 :37 AM EDT documented as of this encounter Plan of Treatment Not on file documented as of this encounter Procedures Procedure Name Priority Date/Time Associated Diagnosis Comments 12 PREFABRICATED POST AND CORE IN ADDITION TO CROWN Routine 09/26/2022 12:00 AM EST 12 ROOT CANAL Routine 09/12/2022 12:00 AM EST 16 O AMALGAM FILLING Routine 02/04/2022 12:00 AM EDT 30 MO AMALGAM FILLING Routine 02/04/2022 12:00 AM EDT 29 DO AMALGAM FILLING Routine 02/04/2022 12:00 AM EDT 19 MO AMALGAM FILLING Routine 11/06/2021 12:00 AM EST 2 SANTANA AMALGAM FILLING Routine 11/20/2020 12:00 AM EST 1 O AMALGAM FILLING Routine 11/20/2020 1 2:00 AM EST 15 MO AMALGAM FILLING Routine 11/20/2020 12:00 AM EST 14 MOD AMALGAM FILLING Routine 1 12:00 AM EST 13 MOD AMALGAM FILLING Routine 1 12:00 AM EST 8 MIFL COMPOSITE FILLING Routine 001 12:00 AM EST documented in this encounter Visit Diagnoses Not on filedocumented in this encounter Care Teams Engineer Technical Staff Relationship Specialty Start Date End Date Nella Torres MD [address] [place] [phone] PCP - General Family Medicine 11/20/20 documented as of this encounter
--- OUTSIDE RECORDS SUMMARY | 2025-08-20 13:14 | XMS_ITS | Clinical Summary ---
Author Organization [employer] Address [address] [facility] [address] [place] [address] Care Team Providers Care Certified Surgical Technologist Name Role Phone Nella Torres MD Primary Care Provide r Allergies Active Allergy Reactions Criticality Noted Date Comments Shellfish Allergy Rash Low 01/23/2023 Medications chlorhexidine (Periogard) 0.12 % solution Place 15 mL into mouth between cheek and gum every 12 (twelve) hours. 2 Active ibuprofen 800 MG tablet Take 1 tablet by mouth every 8 (eight) hours. 2 Active albuterol (2.5 MG/3ML) 0.083% nebulizer solutionIndicati ons:Moderate persistent asthma with exacerbation Take 3 mL by nebulization every 8 (eight) hours. 75 mL 2 3 Active montelukast (Singulair) 10 MG tabletIndication s:Moderate persistent asthma with exacerbation Take 1 tablet (10 mg) by mouth in the morning. 90 tablet 11 3 Active Ventolin HFA 108 (90 Base) MCG/ACT inhalerIndicatio ns:Moderate persistent asthma with exacerbation INHALE 1 PUFF EVERY 4 HOURS NEEDED FOR WHEEZE OR FOR SHORTNESS OF BREATH 18 g 2 3 Active hydrOXYzine HCl (Atarax) 25 MG tabletIndication s:Anxiety Take 1 tablet (25 mg) by mouth if needed in the morning, at noon, and at bedtime for itching. 90 tablet 4 Active Additional Information Patient not taking.Reported on 08/20/2025 fluconazole (Diflucan) 200 MG tabletIndication s:Tinea versicolor Take 1 tablet (200 mg) by mouth 1 (one) time per week. 4 tablet 4 Active Additional Information Patient not taking.Reported on 08/20/2025 ketoconazole (Nizoral) 2 % shampooIndicatio ns:Tinea versicolor Apply topically 3 (three) times a week. Downgrade to 2 times weekly when controlled. 120 mL 3 4 Active Additional Information Patient not taking.Reported on 08/20/2025 EPINEPHrine (Epipen) 0.3 MG/0.3ML injection syringeIndicatio ns:Seafood allergy Inject 0.3 mL (0.3 mg) as directed 1 (one) time if needed for anaphylaxis for up to 1 dose. Inject into upper leg. Call 911 after use. 1 each 4 Active omeprazole (PriLOSEC) [address] capsuleIndicatio ns:Helicobacter pylori infection TAKE 1 TABLET BY MOUTH TWICE A DAY BREAKFAST AND EVENING MEAL 28 capsule 4 Active famotidine (Pepcid) 20 MG tabletIndication s:Gastroesophage al reflux disease, unspecified whether esophagitis present TAKE 1 TABLET BY MOUTH EVERY DAY IN THE MORNING 90 tablet 4 Active fluticasone furoate (Arnuity Ellipta) 200 MCG/ACT inhalerIndicatio ns:Moderate persistent asthma with exacerbation Inhale 1 puff Once per day. 1 each 2 5 Active Active Problems Problem Noted Date Diagnosed Date Hordeolum externum of right upper eyelid 025 Acute otitis media 05/02/2025 Sore throat 05/02/2025 H. pylori infection 11/21/2024 Assessment & Plan (11/21/2024 3:56 PM EST): Patient will be contacted with results Pain of right heel 11/21/2024 Seafood allergy 04/30/2024 Assessment & Plan (04/30/2024 2:01 PM EDT): Patient informs me he has had sever allergy reaction before I will prescribe for him epipen Rash and nonspecific skin eruption 01/29/2024 Assessment & Plan (04/30/2024 2:00 PM EDT): Improved Assessment & Plan (01/29/2024 12:06 PM EDT): Ptyriasis? Ketoconazole shampoo prescribed referral to derm Skin nodule 01/29/2024 Anxiety 01/29/2024 Assessment & Plan (04/30/2024 2:00 PM EDT): Counseling done, he is better I will discontinue hydroxyzine, patient was feeling to somnolent and was having strange thoughts Assessment & Plan (01/29/2024 12:07 PM EDT): Counseling done I will start him on hydroxyzine PRN f/u with therapist Heartburn 01/29/2024 Assessment & Plan (11/21/2024 3:56 PM EST): I advise patient to avoid NSAIDs, spicy and acid food, I advise to eat at the same time every day, I advise to elevate the head of the bed and take medications as prescribe Assessment & Plan (04/30/2024 1:59 PM EDT): See above Assessment & Plan (01/29/2024 12:06 PM EDT): I advise patient to avoid NSAIDs, spicy and acid food, I advise to eat at the same time every day, I advise to elevate the head of the bed and take medications as prescribe GERD (gastroesophageal reflux disease) Assessment & Plan (04/30/2024 1:58 PM EDT): I advise patient to avoid NSAIDs, spicy and acid food, I advise to eat at the same time every day, I advise to elevate the head of the bed and take medications as prescribe C/w famotidine I ask him to do his H pylori test as soon as possible Encounter for preventative adult health care amarilis glasgowation 02/03/2023 Assessment & Plan (02/03/2023 10:55 AM EDT): Occupation: works for [employer] he will soon work at a [employer] Lives with: and kids Social Hx: ocational drinking EtOH, denies smoking cigarettes and ocational recreational drug use. Diet: regular Exercise: sedentary Eye Care: referral will be done today Dental Care: recent appointment Immunizations: COVID up to date Influenza Up to date Today extensive discussion was done about life style modifications I advise healthy diet (low calorie) and cardiovascular exercise Moderate persistent asthma with exacerbation Assessment & Plan (02/03/2023 10:54 AM EDT): Patient educated to avoid asthma triggers C/w albuterol PRN (nbz or puffs) I added today flovent 220mcg BID + montelukast 10mg daily to be started after exacerbation episodes resolves Prednisone 40mg for 5 days if symptoms persist or worse seek medical attention walk in or ED I will reassess in 8 weeks Chronic ankle pain 10/05/2022 Decreased hearing 10/05/2022 Mild intermittent asthma 10/05/2022 Assessment & Plan (04/30/2024 1:58 PM EDT): Patient educated to avoid asthma triggers C/w albuterol and montelukast Assessment & Plan (02/03/2023 10:41 AM EDT): Patient educated to avoid asthma triggers C/w albuterol PRN (nbz or puffs) I added today flovent 220mcg BID + montelukast 10mg daily to be started after exacerbation episodes resolves Prednisone 40mg for 5 days if symptoms persist or worse seek medical attention walk in or ED Encounters Date Type Department Care Team Description 08/20/2025 10:00 AM EDT Office Visit [facility] [address] [place] [address] Flu-like symptoms (Primary Dx); Cough in adult patient 08/20/2025 Travel 07/22/2025 Orders Only [facility] [address] [place] [address] Adi Green DMD 06/25/2025 9:00 AM EDT Office Visit [facility] [address] [place] [address] Wilman, Mary Beth, OD Regular astigmatism of both eyes (Primary Dx); Chalazion of right upper eyelid 06/25/2025 Travel from Last 3 Months Immunizations Immunization Administration Dates Next Due Influenza injectable quadriv alent preservative free 11/12/2020 Pfizer Covid-19 Vaccine 12+ 05/09/2021,0 04/18/2021,02/09/2021,2020 Tdap 11/12/2020 Family History Medical History Relation Name Comments Colon cancer Father's Brother Relation Name Status Comments Father's Brother Social History Tobacco Use Types Packs/Day Years [...] Orientation Straight 09/05/2022 10 :37 AM EDT Last Filed Vital Signs Vital Sign Reading Time Taken Comments Blood Pressure 131/85 08/20/2025 9:35 AM EDT Pulse 71 08/20/2025 9:35 AM EDT Temperature 36.9 C (98.4 F) 08/20/2025 9:35 AM EDT Respiratory Rate 18 08/20/2025 9:35 AM EDT Oxygen Saturation 98% 08/20/2025 9:35 AM EDT Inhaled Oxygen Concentration - - Weight 88.9 kg (196 lb) 08/20/2025 9:35 AM EDT Height 157.5 cm (5' 2 ) 05/02/2025 2:28 PM EDT Body Mass Index 35.85 05/02/2025 2:28 PM EDT Plan of Treatment Health Maintenance Due Date Last Done Comments Dental Oral Exam 1992 Dental X-Ray: Full Mouth 1992 Disability Screening 1992 Alcohol/Substance Use Screening 2004 Family Planning (PISQ) 2007 HPV Vaccines (1 - Male 3-dose series) 2007 Hepatitis A Vaccines (1 of 2 - Risk 2-dose series) 2011 Hepatitis B Vaccines (1 of 3 - 19+ 3-dose series) 2011 Pneumococcal Vaccine: Pediatrics (0 to 5 Years) and At-Risk Patients (6 to 49) Years (1 of 2 - PCV) 2011 Dental Prophylaxis 08/15/2024 02/13/2024 Dental X-Ray: Bitewings 02/13/2025 02/13/2024, 08/01 SDOH Screening 04/19/2025 04/19/2024 Depression Screening 04/30/2025 04/30/2024, 04/30/20 24 COVID-19 Vaccine ( - season) 2025 05/09/2021, 04/18/2021, 02/09/2021, Additional history exists Influenza Vaccine (#1) 2025 11/12/2020 Tobacco Screening 08/20/2026 08/20/2025 DTaP/Tdap/Td Vaccines (2 - Td or Tdap) 11/12/2030 11/12/2020 Zoster Vaccines (1 of 2) 2042 RSV Patients and Patients Aged 60 years or older (1 - 1-dose 75+ series) 2067 HIV Screening Completed 02/14/2023, 11/13/2020 Hepatitis C Screening Completed 02/14/2023 HIB Vaccines Aged Out No longer eligi ble based on patient's age to complete this topic IPV Vaccines Aged Out No longer eligi ble based on patient's age to complete this topic Meningococcal B Vaccine Aged Out No l onger eligible based on patient's age to complete this topic Meningococcal Vaccine Aged Out No zoë jackie eligible based on patient's age to complete this topic RSV under 20 months Aged Out No longe r eligible based on patient's age to complete this topic Rotavirus Vaccines Aged Out No longer eligible based on patient's age to complete this topic Procedures Procedure Name Priority Date/Time Associated Diagnosis Comments POCT RAPID STREP A Routine 08/20/2025 9: 39 AM EDT Cough in adult patient POCT RAPID COVID ANTIGEN Routine 08/20/2025 9:39 AM EDT Cough in adult patient POCT INFLUENZA B (ID NOW RAPID MOLECULAR) Routine 08/20/2025 9:39 AM EDT Cough in adult patient POCT INFLUENZA A (ID NOW RAPID MOLECULAR) Routine 08/20/2025 9:39 AM EDT Cough in adult patient Full PROPHYLAXIS - ADULT Routine 02/13/2024 11:00 AM EDT Dental plaque Dental calculus BITEWINGS - 4 RADIOGRAPHIC IMAGES Routine 02/13/2024 11:00 AM EDT HEPATITIS PANEL, GENERAL Routine 02/14/2023 8:30 AM EDT Encounter for preventative adult health care examination HIV 1 RNA, QN PCR W/RFL LASHAWN (RTI,PI,INTEGRASE) Routine 02/14/2023 8:30 AM EDT Encounter for preventative adult health care examination from Last 3 Months or Most Recently Relevant to Health Maintenance Results * Influenza B (ID NOW Rapid Molecular) (08/20/2025 9:39 AM EDT) [facility] Influenza B Negative Negative, Indeterminate [facility] Swab 08/20/2025 9:39 AM EDT Nella Mccloud MD POINT OF CARE TRIPP T ENTER/EDIT ORDERABLES Final Result Performing Organization Address [facility]/ZIP Co de Phone Number [facility] [address] [place] [phone] * Influenza A (ID NOW Rapid Molecular) (08/20/2025 9:39 AM EDT) [facility] Influenza A Negative Negative, Indeterminate [facility] Swab 08/20/2025 9:39 AM EDT us Nella Mccloud MD POINT OF CARE TRIPP T ENTER/EDIT ORDERABLES Final Result Performing Organization Address [facility] Co de Phone Number [facility] [address] [place] [phone] * POCT Rapid COVID Ag (08/20/2025 9:39 AM EDT) [facility] Rapid COVID Ag Negative Swab 08/20/2025 9:39 AM EDT us Nella Mccloud MD POINT OF CARE TRIPP T ENTER/EDIT ORDERABLES Final Result * POCT rapid strep A manually resulted (08/20/2025 9:39 AM EDT) [facility] Rapid Strep A Screen Negative Negative, None Detected Swab 08/20/2025 9:39 AM EDT Nella Mccloud MD POINT OF CARE TRIPP T ENTER/EDIT ORDERABLES Final Result * HIV-1 RNA, Quantitative, Real-Time PCR with Reflex to Genotype (RTI, PI, Integrase) (02/14/2023 8:30 AM EDT) Pathologist [facility] HIV 1 RNA, QN PCR NOT DETECTED copies/mL [facility], HIV 1 RNA, QN PCR NOT DETECTED Log copies/mL [facility], Comment: REFERENCE RANGE: NOT DETECTED copies/mL NOT DETECTED Log copies/mL This test was performed using Real-Time Polymerase Chain Reaction. Reportable range is 20 to 10,000,000 copies/mL (1.30-7.00 Log copies/mL). 02/14/2023 8:30 AM EDT 02/14/2023 8:30 AM EDT Narrative [facility] - 02/17/2023 7:04 PM EDT FASTING:YES FASTING: YES Nella Talavera MD LAB BLOOD ORDERABLES Final Result [facility] [address], [place] [address] [facility], [address] [place] [address] * (ABNORMAL) Hepatitis Panel, General (02/14/2023 8:30 AM EDT) Pathologist [facility] Hepatitis A Antibody Total REACTIVE( A) NON-REACT VICENTE [facility] [place] [facility] Comment: For additional information, please refer to http://education.[address]/faq/HVF212 (This link is being provided for informational/ educational purposes only.) Hepatitis B Surface Antibody QL NON-REACT VICENTE NON-REACT VICENTE [facility] [place] [facility] Hepatitis B Surface Ag NON-REACT VICENTE NON-REACT VICENTE [email or web address] Hepatitis B Core Antibody Total NON-REACT VICENTE NON-REACT [facility] [place] [facility] Hepatitis C Antibody NON-REACT VICENTE NON-REACT VICENTE [facility] [place] [facility] Index 0.07 <1.00 [facility] Comment: HCV antibody was non-reactive. There is no laboratory evidence of HCV infection. In most cases, no further action is required. However, if recent HCV exposure is suspected, a test for HCV RNA (test code 28813) is suggested. For additional information please refer to http://education.[address]/faq/IYB45i4 (This link is being provided for informational/ educational purposes only.) 02/14/2023 8:30 AM EDT 02/14/2023 8:30 AM EDT Narrative [facility] - 02/17/2023 7:04 PM EDT FASTING:YES FASTING: YES Nella Talavera MD LAB BLOOD ORDERABLES Final Result [facility] [address], [place] [address] [facility] [place] [facility] [address] [place] [address] from Last 3 Months or Most Recently Relevant to Health Maintenance [place] [address] [place] [address] 2 DENTAL - HSN FULL (MEDICAID) [facility] Care Teams Certified Surgical Technologist Relationship Specialty Start Date End Date Nella Torres MD [address] [place] [phone] PCP - General Family Medicine 11/20/20
--- OUTSIDE RECORDS SUMMARY | 2025-08-20 13:14 | XMS_ITS | Encounter Summary ---
Author Organization [employer] Address [address] [facility] 7[address] [place] [address] Care Team Providers Care Roof Fixer Name Role Phone Nella Torres MD Primary Care Provide r Encounter Details Date Type Department Care Team (Latest Contact Info) Description 02/04/2022 Abstract [facility] Dental, Provider, DDS Social History Tobacco Use [...] documented as of this encounter Visit Diagnoses Not on filedocumented in this encounter Care Teams Roof Fixer Relationship Specialty Start Date End Date Nella Torres MD [address] [place] [phone] PCP - General Family Medicine 11/20/20 documented as of this encounter
--- OUTSIDE RECORDS SUMMARY | 2025-08-20 13:14 | XMS_ITS | Encounter Summary ---
Author Organization [employer] Address [address] [facility] [address] [place] [address] Care Team Providers Care Egg Producer Name Role Phone Nella Torres MD Primary Care Provide r Reason for Visit * Reason Onset Date Comments Med Refill 06/23/2023 Encounter Details Date Type Department Care Team (Late st Contact Info) Description 06/23/2023 Refill [facility] [address] [place] [address] Nelal Torres MD [address] [place] [address] Moderate persistent asthma with exacerbation Social History Tobacco Use Types Packs/Day Years Used Date Smoking Tobacco: Never Passive Smoke Exposure: Never Smokeless Tobacco: Never Alcohol Use Standard Drinks/Week Comments Yes 0 (1 standard drink = 0.6 oz pur e alcohol) oca Depression Answer Date Recorded Patient Health Questionnaire-9 Score 0 02/03/2023 Depression Answer Date Recorded Patient Health Questionnaire-2 Score 0 02/03/2023 Sex and Gender Information Value Date Recorded Sex Assigned at Male 09/05/2022 10:37 AM EDT Legal Sex Male 10:37 AM EDT Gender Identity Male 09/05/2022 10:37 AM EDT Sexual Orientation Straight 09/05/2022 10 :37 AM EDT documented as of this encounter Plan of Treatment Not on file documented as of this encounter Visit Diagnoses Diagnosis Moderate persistent asthma with exacerbation Unspecified asthma, with exacerbation documented in this encounter Additional Health Concerns Assessment Noted Time PHQ-9 Depression Total Score: 0 02/04/20 23 10:05 AM EDT documented as of this encounter Care Teams Egg Producer Relationship Specialty Start Date End Date Nella Torres MD [address] [place] [address] PCP - General Family Medicine 11/20/20 documented as of this encounter
--- OUTSIDE RECORDS SUMMARY | 2025-08-20 13:14 | XMS_ITS | Encounter Summary ---
Author Organization [employer] Address [address] [facility] [address] [place] [address] Care Team Providers Care Candy Bar Attendant Name Role Phone Nella Torres MD Primary Care Provide r Encounter Details Date Type Department Care Team (Latest Contact Info) Description 08/20/2025 Travel Social History Tobacco Use Types Packs/Day Years [...] is your housing situation today? I have bnadar sampson 04/19/[address] you [...] Diagnoses Not on filedocumented in this encounter Additional Health Concerns Assessment Noted Time PHQ-9 Depression Total Score: 1 04/30/20 24 1:06 PM EDT documented as of this encounter Care Teams Candy Bar Attendant Relationship Specialty Start Date End Date Nella Torres MD [address] [place] [address] PCP - General Family Medicine 11/20/20 documented as of this encounter
--- OUTSIDE RECORDS SUMMARY | 2025-08-20 13:14 | XMS_ITS | Encounter Summary ---
Author Organization [employer] Address [address] [place] [address] [address] [place] [address] Care Team Providers Care Licensed Vocational Nurse Name Role Phone Nella Torres MD Primary Care Provide r Encounter Details Date Type Department Care Team ([facility] st Contact Info) Description 11/01/2022 Abstract [facility] [address] [place] [address] James Stearns DMD [address] [place] [address] Social History Tobacco Use Types Packs/Day Years Used Date Smoking Tobacco: Never Smokeless Tobacco: Never Alcohol Use Standard Drinks/Week Comments Never 0 (1 standard drink = 0.6 oz pur e alcohol) Sex and Gender Information Value Date Recorded Sex Assigned at Male 09/05/2022 10:37 AM EDT Legal Sex Male 10:37 AM EDT Gender Identity Male 09/05/2022 10:37 AM EDT Sexual Orientation Straight 09/05/2022 10 :37 AM EDT COVID-19 Exposure Response Date Recorded In the last 10 days, have yo u been in contact with someone who was confirmed or suspected to have Coronavirus/COVID-19? Yes 11/01/2022 11:32 AM EST documented as of this encounter Plan of Treatment Not on file documented as of this encounter Visit Diagnoses Not on filedocumented in this encounter Care Teams Licensed Vocational Nurse Relationship Specialty Start Date End Date Nella Torres MD [address] [place] [address] PCP - General Family Medicine 11/20/20 documented as of this encounter
[2025-08-20 13:25] LABS: Hematocrit 47.8 % (42.0-52.0); Hemoglobin 15.6 g/dl (14.0-18.0); Imm Gran Abs Auto 0.01 X10*3/uL (0.00-0.03); Imm Gran Pct Auto 0.1 % (0.0-0.4); Lymphocytes Absolute Auto 2.4 X10*3/uL (1.2-4.9); Mean Corpuscular HGB Conc 32.6 g/dl (31.0-36.0); Mean Corpuscular Hemoglobin 28.9 pg (27.0-33.0); Mean Corpuscular Volume 88.5 fL (80.0-98.0); NRBC Abs Auto 0.000 X10*3/uL (0.0-0.012); NRBC Pct Auto 0.0 /100WBC (0.0-0.2); Platelet Count 249 X10*3/uL (160-400); Red Blood Count 5.40 X10*6/uL (4.60-5.80); White Blood Count 6.7 X10*3/uL (4.8-10.8)
[2025-08-20 14:18] LABS: Alanine Aminotransferase 108 U/L (0-40); Albumin Level 5.0 g/dL (3.5-5.0); Alkaline Phosphatase 89 U/L (39-117); Anion Gap 11 (12-20); Aspartate Amino Transferase 68 U/L (5-37); Blood Urea Nitrogen 17 mg/dL (9-16); Calcium 9.7 mg/dL (8.4-10.2); Carbon Dioxide 29 mmol/L (22-29); Chloride 104 mmol/L (96-108); Estimated Glomerular Filt Rate > 60; Potassium 4.5 mmol/L (3.3-5.1); Sodium 139 mmol/L (135-145); Total Protein 7.7 g/dL (6.5-8.0)
[2025-08-20 16:00] LABS: Chlamydia pneumoniae PCR Not Detected (Not Detect.); Coronavirus 229E PCR Not Detected (Not Detect.); Coronavirus HKU1 PCR Not Detected (Not Detect.); Coronavirus NL63 PCR Not Detected (Not Detect.); Coronavirus OC43 PCR Not Detected (Not Detect.); RSV PCR Not Detected (Not Detect.); Rhino/Enterovirus PCR Not Detected (Not Detect.)
[2025-08-20 17:19] LABS: Influenza A H1 PCR Not Detected (Not Detect.); Influenza A H1-2009 PCR Not Detected (Not Detect.); Influenza A H3 PCR Not Detected (Not Detect.); SARS-CoV-2 PCR Not Detected (Not Detect.)
[2025-08-21 04:59] LABS: HBsAGNum1 0.46 S/CO (0.00-0.99); HIV Num 1 0.05 S/CO (0.00-0.99); Hepatitis B Surface Antigen Negative (Negative); ~HepC Num1 0.09 S/CO (0.00-0.79); ~Hepatitis C Antibody Nonreactive (Nonreactive)
[2025-08-22 09:28] LABS: Hepatitis A Antibody IgM 0.21 Index (0-0.79); ~Hepatitis A Antibody IgM Nonreactive (Nonreactive)
== END 2025-08-20 10:51 | disposition home or self-care (01) ==
LOC: HO.HHCL 10:50
PROVIDERS: Student in an Organized Health Care Education/Training Program; PCP Internal Medicine; Visit Provider Internal Medicine
DX: Z11.59 Encounter for screening for other viral diseases (principal); Z11.4 Encounter for screening for human immunodeficiency virus [HIV]; R68.89 Other general symptoms and signs
CPT/HCPCS: 36415; 80053; 85025; 86709; 86803; 87340; 87389; 87633